=== PATIENT | male | born 1960 | race Caucasian/White ===

== ENCOUNTER 2021-01-21 10:15 | Emergency (ER) | payer SELFPAY ==
[2021-01-21] MEDS ORDERED: methylPREDNISolone Sod Succ/PF 125 MG/2 ML VIAL ONE (11:05)
== END 2021-01-21 11:13 | disposition home or self-care (01) ==
LOC: BURERS 10:15
DX: L03.114 Cellulitis of left upper limb (principal); L03.113 Cellulitis of right upper limb; L30.9 Dermatitis, unspecified
CPT/HCPCS: 96372; 99283; J2930